=== PATIENT | male | born 1970 | race Hispanic/Latino ===

== ENCOUNTER 2022-06-11 16:35 | Inpatient (IN) | payer BC ==
[2022-06-11] MEDS ORDERED: Guaifenesin DM 100-10/5 ML UDCUP PO PRN (17:25)
[2022-06-11] MEDS ORDERED: Ondansetron PF 4 MG/2 ML Vial IVP PRN (17:25)
[2022-06-11] MEDS ORDERED: Ondansetron ODT 4 MG TAB PO PRN (17:25)
[2022-06-11] MEDS ORDERED: Ipratropium/Albuterol 3 ML NEB NEB PRN (17:27)
[2022-06-11] MEDS ORDERED: Dextrose 5% in Water 1,000 ML IV PRN (17:41)
[2022-06-11] MEDS ORDERED: Dextrose 50% Abboject 50 ML SYRINGE SLOW IVP PRN (17:41)
[2022-06-11 19:10] VITALS: BMI 29.5
[2022-06-11] MEDS: Insulin Regular 300 UNITS/3 ML VIAL SC PRN (20:57)
[2022-06-12 02:17] LABS: Amphetamine Detected (NotDetected); Barbiturates Screen Not Detected (NotDetected); Benzodiazepine Screen Not Detected (NotDetected); Cocaine Metabolite Screen Not Detected (NotDetected); Methadone Not Detected (NotDetected); Methamphetamine Detected (NotDetected); Opiate Screen Detected (NotDetected); Oxycodone Screen Not Detected (NotDetected); Phencyclidine (PCP) Not Detected (NotDetected); THC/Cannabinoid Screen Not Detected (NotDetected); Tricyclic Screen Not Detected (NotDetected)
[2022-06-12 02:22] LABS: Legionella Urinary Ag Negative (Negative); Strep pneumo Urine Ag NEGATIVE (NEGATIVE)
[2022-06-12 05:38] LABS: #Monocytes 0.4 10x3/uL (0.0-1.1); #Neutrophils 14.7 10x3/uL (1.5-8.4); %Basophils 0.1 % (0.0-2.0); %Lymphocytes 4.2 % (18.0-47.0); %Monocytes 2.8 % (0.0-10.0); %Neutrophils 92.3 % (40.0-75.0); Hemoglobin 13.8 g/dL (13.5-17.5); Mean Corpuscular HGB CONC 34.6 g/dL (32.0-36.0); Mean Corpuscular Hemoglobin 31.2 pg (27.0-33.0); Mean Corpuscular Volume 90.3 fl (81.2-95.1); Mean Platelet Volume 10.2 fl (7.4-10.4); Platelet Count 287 10x3/uL (150-450); RBC Distribution Width 12.6 % (11.5-14.5); Red Blood Cell (RBC) Count 4.42 10x6/uL (4.32-5.72); White Blood Cell (WBC) Count 15.9 10x3/uL (3.5-10.5)
[2022-06-12 05:48] LABS: Anion Gap 14 mmol/L (10-20); BUN (Urea Nitrogen) 21 mg/dL (8.9-20.6); Calc. Creatinine Clearance 116 mL/min (70-130); Calcium 9.2 mg/dL (7.8-10.44); Carbon Dioxide 23 mmol/L (22-29); Chloride 106 mmol/L (98-107); Estimated GFR 98; Glucose 215 mg/dL (70-105); Sodium 139 mmol/L (136-145)
[2022-06-12] MEDS: Insulin Regular 300 UNITS/3 ML VIAL SC PRN ×3 (06:29→18:53)
[2022-06-12] MEDS: cefTRIAXone\\ROCEPHIN 1 GM in Sodium Chloride 0.9% 100 ML IVPB SCH (09:51)
[2022-06-12] MEDS: Carvedilol 6.25 MG TAB PO SCH ×2 (09:52→18:13)
[2022-06-12] MEDS: Azithromycin 500 MG in Sodium Chloride 0.9% 250 ML 250 ML IVPB SCH (13:25)
[2022-06-12] MEDS ORDERED: Lisinopril 5 MG TAB PO SCH (16:00)
[2022-06-12] MEDS ORDERED: Furosemide 20 MG TAB PO SCH (18:30)
[2022-06-13 05:35] LABS: Anion Gap 11 mmol/L (10-20); BUN (Urea Nitrogen) 25 mg/dL (8.9-20.6); Calc. Creatinine Clearance 118 mL/min (70-130); Calcium 8.6 mg/dL (7.8-10.44); Carbon Dioxide 25 mmol/L (22-29); Cardiac Risk 3.8 (Less than 4.5); Chloride 109 mmol/L (98-107); Cholesterol 183 mg/dl (< 200 Desired); Estimated GFR 100; Glucose 134 mg/dL (70-105); HDL Cholesterol 48 mg/dL (>60 Neg Risk); LDL Cholesterol, Calculated 114 mg/dL; Potassium 3.7 mmol/L (3.5-5.1); Sodium 141 mmol/L (136-145); Triglycerides 106 mg/dL (Less than 150)
[2022-06-13 05:41] LABS: #Basophils 0.1 10x3/uL (0.0-0.2); #Eosinphils 0.3 10x3/uL (0.0-0.5); #Monocytes 0.8 10x3/uL (0.0-1.1); #Neutrophils 9.8 10x3/uL (1.5-8.4); %Basophils 0.4 % (0.0-2.0); %Eosinophils 2.3 % (0.0-6.0); %Lymphocytes 22.3 % (18.0-47.0); %Monocytes 5.3 % (0.0-10.0); %Neutrophils 69.3 % (40.0-75.0); Hemoglobin 13.3 g/dL (13.5-17.5); Mean Corpuscular HGB CONC 34.3 g/dL (32.0-36.0); Mean Corpuscular Hemoglobin 31.4 pg (27.0-33.0); Mean Corpuscular Volume 91.5 fl (81.2-95.1); Mean Platelet Volume 10.5 fl (7.4-10.4); Platelet Count 270 10x3/uL (150-450); RBC Distribution Width 13.1 % (11.5-14.5); Red Blood Cell (RBC) Count 4.24 10x6/uL (4.32-5.72); White Blood Cell (WBC) Count 14.1 10x3/uL (3.5-10.5)
[2022-06-13] MEDS: Furosemide 40 MG/4 ML VIAL SLOW IVP SCH ×2 (06:06→16:52)
[2022-06-13] MEDS ORDERED: Spironolactone 25 MG TAB PO SCH (08:00)
[2022-06-13] MEDS ORDERED: Lisinopril 20 MG TAB PO SCH (09:00)
[2022-06-13] MEDS ORDERED: Lisinopril 5 MG TAB PO SCH ×2 (09:00)
[2022-06-13] MEDS ORDERED: Furosemide 20 MG TAB PO SCH (09:00)
[2022-06-13] MEDS: Carvedilol 25 MG TAB PO SCH ×2 (10:29→16:52)
[2022-06-13] MEDS: cefTRIAXone\\ROCEPHIN 1 GM in Sodium Chloride 0.9% 100 ML IVPB SCH (11:54)
[2022-06-13 13:16] VITALS: BP 135/94; TEMP 97.9
[2022-06-13] MEDS: Azithromycin 500 MG in Sodium Chloride 0.9% 250 ML 250 ML IVPB SCH (14:15)
== END 2022-06-13 17:25 | disposition home or self-care (01) | DRG 193 ==
LOC: CSHTELE 16:35 → OBSVTOIN 06-12 14:58
PROVIDERS: ADMIT Family Medicine; ATTEND Family Medicine
DX: J18.9 Pneumonia, unspecified organism (principal); I50.43 Acute on chronic combined systolic (congestive) and diastolic (congestive) heart failure; J96.01 Acute respiratory failure with hypoxia; E11.9 Type 2 diabetes mellitus without complications; Z20.822 Contact with and (suspected) exposure to COVID-19; I11.0 Hypertensive heart disease with heart failure; F15.10 Other stimulant abuse, uncomplicated; Z88.8 Allergy status to other drugs, medicaments and biological substances; Z79.899 Other long term (current) drug therapy
CPT/HCPCS: 36415; 36416; 80048; 80061; 80306; 83036; 85025; 87449; 87633; 87899; 93306; 94760; J0456; J0696; J1650; J1815; J1940; J3490; J7050

== ENCOUNTER 2022-09-19 10:30 | Observation (INO) | payer BC ==
[2022-09-19 11:06] LABS: Hemoglobin 12.3 g/dL (13.5-17.5)
[2022-09-19] MEDS ORDERED: Dextrose 5% in Water 1,000 ML IV PRN (13:36)
[2022-09-19] MEDS ORDERED: HumaLOG 300 UNITS/3 ML VIAL SC PRN (13:36)
[2022-09-19] MEDS ORDERED: Dextrose 50% Abboject 50 ML SYRINGE SLOW IVP PRN (13:36)
[2022-09-19 17:13] VITALS: BMI 29.6
[2022-09-19] MEDS: Carvedilol 25 MG TAB PO SCH (21:18)
[2022-09-20 05:26] LABS: #Eosinphils 0.2 10x3/uL (0.0-0.5); #Monocytes 0.5 10x3/uL (0.0-1.1); %Basophils 0.4 % (0.0-2.0); %Eosinophils 3.2 % (0.0-6.0); %Lymphocytes 33.1 % (18.0-47.0); %Monocytes 7.6 % (0.0-10.0); %Neutrophils 55.6 % (40.0-75.0); Hemoglobin 10.3 g/dL (13.5-17.5); Mean Corpuscular HGB CONC 33.3 g/dL (32.0-36.0); Mean Corpuscular Hemoglobin 30.7 pg (27.0-33.0); Mean Corpuscular Volume 92.2 fl (81.2-95.1); Mean Platelet Volume 10.6 fl (7.4-10.4); Platelet Count 210 10x3/uL (150-450); RBC Distribution Width 14.6 % (11.5-14.5); Red Blood Cell (RBC) Count 3.35 10x6/uL (4.32-5.72); White Blood Cell (WBC) Count 7.1 10x3/uL (3.5-10.5)
[2022-09-20 05:28] LABS: ALT (SGPT) 10 U/L (8-55); AST (SGOT) 15 U/L (5-34); Albumin 3.7 g/dL (3.5-5.0); Alkaline Phosphatase 50 U/L (40-110); Anion Gap 15 mmol/L (10-20); BUN (Urea Nitrogen) 19 mg/dL (8.9-20.6); Bilirubin, Total 0.5 mg/dL (0.2-1.2); Calc. Creatinine Clearance 130 mL/min (70-130); Calcium 8.6 mg/dL (7.8-10.44); Carbon Dioxide 23 mmol/L (22-29); Chloride 106 mmol/L (98-107); Estimated GFR 106; Globulin 2.5 g/dL (2.4-3.5); Glucose 115 mg/dL (70-105); Potassium 3.8 mmol/L (3.5-5.1); Protein, Total 6.2 g/dL (6.0-8.3); Sodium 140 mmol/L (136-145)
[2022-09-20] MEDS ORDERED: Spironolactone 25 MG TAB PO SCH (08:00)
[2022-09-20] MEDS ORDERED: Lisinopril 20 MG TAB PO SCH (09:00)
[2022-09-20] MEDS ORDERED: Furosemide 40 MG TAB PO SCH (09:00)
[2022-09-20] MEDS: Carvedilol 25 MG TAB PO SCH (10:10)
[2022-09-20 10:25] LABS: Hemoglobin 11.2 g/dL (13.5-17.5); Platelet Count 242 10x3/uL (150-450)
[2022-09-20 12:40] VITALS: BP 120/76; TEMP 98.3
== END 2022-09-20 15:35 | disposition home or self-care (01) ==
LOC: SUATTDRO 10:30 → CSHERS 10:30 → CSHERHOLD 12:04 → CSHTELE 18:04
PROVIDERS: ADMIT Family Medicine; ATTEND Family Medicine
DX: R55 Syncope and collapse (principal); E11.9 Type 2 diabetes mellitus without complications; I11.0 Hypertensive heart disease with heart failure; I50.20 Unspecified systolic (congestive) heart failure; Z79.899 Other long term (current) drug therapy; Z88.8 Allergy status to other drugs, medicaments and biological substances
CPT/HCPCS: 36415; 80053; 85025; 93880; 99285; G0378